=== PATIENT | female | born 1990 | race Caucasian/White ===

== ENCOUNTER → 2016-03-19 | Outpatient (CLI) | payer OTHER ==
[~2016-03-19] MED LIST: FIOR1CAP PO; IBUP60TA PO; PERC5TAB6 PO; PREN1TAB11 PO; SLOW160T PO
== END ==
LOC: M LRY 15:49
PROVIDERS: ATTEND Advanced Practice Midwife
DX: N91.2 Amenorrhea, unspecified (principal)

== ENCOUNTER → 2017-02-11 | Outpatient (CLI) | payer OTHER ==
[2017-02-11 11:40] LABS: BASO % 0.3 % (0.0-1.0); EOS % 0.3 % (0.0-3.0); IMMATURE GRANULOCYTE % 0.3 % (0-0); LYMPH # 1.5 10^3/uL (1.5-6.5); LYMPH % 16.5 % (24.0-44.0); MEAN CORPUSCULAR HEMOGLOBIN 28.3 pg (27.0-33.0); MEAN CORPUSCULAR HGB CONC 33.5 g/dl (32.0-36.5); MEAN CORPUSCULAR VOLUME 84.5 fl (80.0-96.0); MONO # 0.4 10^3/uL (0.0-0.8); MONO % 4.4 % (0.0-5.0); NEUTROPHILS # 6.9 10^3/uL (1.8-7.7); NEUTROPHILS % 78.2 % (36.0-66.0); PLATELET COUNT, AUTOMATED 321 10^3/uL (150-450); RED CELL DISTRIBUTION WIDTH 13.6 % (11.5-14.5); WHITE BLOOD COUNT 8.8 10^3/uL (4.0-10.0)
[2017-02-11 12:19] LABS: HBsAg Prenatal NEGATIVE (NEGATIVE)
[2017-02-11 12:26] LABS: ALT/SGPT 18 U/L (12-78); AST/SGOT 15 U/L (7-37); BILIRUBIN,TOTAL 0.3 MG/DL (0.2-1.0); GLOMERULAR FILTRATION RATE > 60.0 (>60)
== END ==
LOC: M LRY 09:59
DX: Z34.81 Encounter for supervision of other normal pregnancy, first trimester (principal); Z3A.01 Less than 8 weeks gestation of pregnancy
CPT/HCPCS: 84460

== ENCOUNTER → 2017-03-16 | Outpatient (REF) | payer OTHER | LOC: M SFHCLERA 16:32 | DX: J02.9 Acute pharyngitis, unspecified (principal) ==

== ENCOUNTER → 2017-04-10 | Outpatient (CLI) | payer OTHER | LOC: M RAD 09:57 | DX: Z36.89 Encounter for other specified antenatal screening (principal); Z3A.00 Weeks of gestation of pregnancy not specified | CPT/HCPCS: 76811 ==

== ENCOUNTER → 2017-05-07 | Outpatient (CLI) | payer OTHER | LOC: M RAD 15:44 | DX: Z36.9 Encounter for antenatal screening, unspecified (principal); Z3A.22 22 weeks gestation of pregnancy | CPT/HCPCS: 76816 ==

== ENCOUNTER 2017-05-08 15:55 | Outpatient (CLI) | payer OTHER ==
[2017-05-08 17:08] LABS: AMORPHOUS SEDIMENT SMALL (NEGATIVE); APPEARANCE, URINE CLOUDY (CLEAR); BACTERIA, URINE AUTO NEGATIVE (NEGATIVE); BILIRUBIN, URINE AUTO NEGATIVE (NEGATIVE); BLOOD, URINE BLOOD 3+ (NEGATIVE); COLOR, URINE YELLOW (YELLOW); GLUCOSE, URINE (UA) AUTO NEGATIVE (NEGATIVE); KETONE, URINE AUTO NEGATIVE (NEGATIVE); LEUKOCYTE ESTERASE, URINE AUTO NEGATIVE (NEGATIVE); NITRITE, URINE AUTO NEGATIVE (NEGATIVE); PROTEIN, URINE AUTO NEGATIVE (NEGATIVE); RBC, URINE AUTO TNTC /HPF (0-3); SPECIFIC GRAVITY URINE AUTO 1.014 (1.002-1.035); SQUAMOUS EPITHELIAL CELL UR AU 2 /HPF (0-6); UROBILINOGEN, URINE AUTO 0.2 mg/dL (0.0-2.0); WBC, URINE AUTO 2 /HPF (0-3)
== END 2017-05-08 17:38 | disposition home or self-care (01) ==
LOC: M LDO 15:55
DX: O99.89 Other specified diseases and conditions complicating pregnancy, childbirth and the puerperium (principal); Z3A.22 22 weeks gestation of pregnancy; R82.90 Unspecified abnormal findings in urine; O62.0 Primary inadequate contractions; Z88.2 Allergy status to sulfonamides
CPT/HCPCS: 59025

== ENCOUNTER → 2017-06-03 | Outpatient (REF) | payer OTHER ==
[2017-06-03 14:17] LABS: CREATININE,RANDOM URINE 94.3 MG/DL
== END ==
LOC: M LAB REF 13:18
DX: Z34.82 Encounter for supervision of other normal pregnancy, second trimester (principal)

== ENCOUNTER → 2017-06-03 | Outpatient (CLI) | payer OTHER ==
[2017-06-03 14:09] LABS: ALT/SGPT 14 U/L (12-78); AST/SGOT 15 U/L (7-37); BILIRUBIN,TOTAL 0.1 MG/DL (0.2-1.0); CREATININE FOR GFR 0.54 MG/DL (0.55-1.30); GLOMERULAR FILTRATION RATE > 60.0 (>60); LDH LACTATE DEHYDROGENASE 124 U/L (84-246); URIC ACID 3.3 MG/DL (2.6-6.0)
== END ==
LOC: M SMT 08:24
DX: Z34.82 Encounter for supervision of other normal pregnancy, second trimester (principal)

== ENCOUNTER → 2017-06-08 | Outpatient (CLI) | payer OTHER ==
[2017-06-08 16:27] LABS: HEMATOCRIT 33.3 % (36.0-47.0); MEAN CORPUSCULAR HEMOGLOBIN 28.9 pg (27.0-33.0); MEAN CORPUSCULAR VOLUME 87.6 fl (80.0-96.0); PLATELET COUNT, AUTOMATED 251 10^3/uL (150-450); WHITE BLOOD COUNT 10.2 10^3/uL (4.0-10.0)
[2017-06-09 11:41] LABS: GLUCOSE CHALLENGE TEST 1 HOUR 156 MG/DL (LESS THAN 140)
== END ==
LOC: M LRY 09:52
DX: Z36.89 Encounter for other specified antenatal screening (principal); Z3A.00 Weeks of gestation of pregnancy not specified
CPT/HCPCS: 82950

== ENCOUNTER → 2017-06-10 | Outpatient (CLI) | payer OTHER ==
[2017-06-10 08:50] LABS: GLUCOSE, FASTING 64 MG/DL (LESS THAN 95)
[2017-06-10 09:52] LABS: 1 HR GLUCOSE 116 MG/DL (LESS THAN 180)
[2017-06-10 11:01] LABS: 2 HR GLUCOSE 115 MG/DL (LESS THAN 155)
[2017-06-10 11:33] LABS: 3 HR GLUCOSE 49 MG/DL (LESS THAN 140)
== END ==
LOC: M LAB 07:46
DX: Z34.82 Encounter for supervision of other normal pregnancy, second trimester (principal)

== ENCOUNTER 2017-06-22 11:38 | Outpatient (CLI) | payer OTHER ==
[2017-06-22 13:00] LABS: HEMOGLOBIN 11.1 g/dl (12.0-15.5); MEAN CORPUSCULAR HGB CONC 33.6 g/dl (32.0-36.5); MEAN CORPUSCULAR VOLUME 86.2 fl (80.0-96.0); PLATELET COUNT, AUTOMATED 246 10^3/uL (150-450); RED BLOOD COUNT 3.83 10^6/uL (4.00-5.40); RED CELL DISTRIBUTION WIDTH 13.5 % (11.5-14.5); WHITE BLOOD COUNT 11.5 10^3/uL (4.0-10.0)
[2017-06-22 13:36] LABS: TROPONIN I < 0.02 NG/ML (< 0.10)
[2017-06-22 14:06] LABS: ALBUMIN 2.7 GM/DL (3.2-5.2); ALBUMIN/GLOBULIN RATIO 0.71 (1.00-1.93); ALKALINE PHOSPHATASE 121 U/L (45-117); ALT/SGPT 17 U/L (12-78); ANION GAP 8 MEQ/L (8-16); AST/SGOT 16 U/L (7-37); BILIRUBIN,TOTAL 0.2 MG/DL (0.2-1.0); BLOOD UREA NITROGEN 6 MG/DL (7-18); CALCIUM LEVEL 8.6 MG/DL (8.5-10.1); CARBON DIOXIDE LEVEL 22 MEQ/L (21-32); CHLORIDE LEVEL 108 MEQ/L (98-107); GLOMERULAR FILTRATION RATE > 60.0 (>60); GLUCOSE, FASTING 76 MG/DL (70-100); LDH LACTATE DEHYDROGENASE 149 U/L (84-246); POTASSIUM SERUM 4.1 MEQ/L (3.5-5.1); SODIUM LEVEL 138 MEQ/L (136-145); TOTAL PROTEIN 6.5 GM/DL (6.4-8.2); URIC ACID 3.2 MG/DL (2.6-6.0)
[2017-06-22 15:02] LABS: CREATININE,RANDOM URINE 33.6 MG/DL
[2017-06-22] MEDS: PANTOPRAZOLE 40MG TAB (PROTONIX) PO (16:58)
== END 2017-06-22 17:30 | disposition home or self-care (01) ==
LOC: M LDO 11:38
DX: O99.89 Other specified diseases and conditions complicating pregnancy, childbirth and the puerperium (principal); Z3A.28 28 weeks gestation of pregnancy; R03.0 Elevated blood-pressure reading, without diagnosis of hypertension; R07.89 Other chest pain; O13.3 Gestational [pregnancy-induced] hypertension without significant proteinuria, third trimester; Z88.2 Allergy status to sulfonamides
CPT/HCPCS: 59025

== ENCOUNTER → 2017-07-10 | Outpatient (CLI) | payer OTHER | LOC: M RAD 17:58 | DX: O13.3 Gestational [pregnancy-induced] hypertension without significant proteinuria, third trimester (principal); Z34.83 Encounter for supervision of other normal pregnancy, third trimester ==

== ENCOUNTER → 2017-07-27 | Outpatient (CLI) | payer OTHER ==
[2017-07-27 17:23] LABS: ALBUMIN 2.7 GM/DL (3.2-5.2); ALBUMIN/GLOBULIN RATIO 0.69 (1.00-1.93); ALKALINE PHOSPHATASE 179 U/L (45-117); ALT/SGPT 22 U/L (12-78); AST/SGOT 20 U/L (7-37); BILIRUBIN,DIRECT < 0.1 MG/DL (0.0-0.2); BILIRUBIN,TOTAL 0.2 MG/DL (0.2-1.0); TOTAL PROTEIN 6.6 GM/DL (6.4-8.2)
[2017-07-30 14:16] LABS: BILE ACIDS FRACTIONATED 4.9 umol/L (4.7-24.5)
== END ==
LOC: M LRY 11:28
DX: L29.9 Pruritus, unspecified (principal)
CPT/HCPCS: 80076

== ENCOUNTER → 2017-07-30 | Outpatient (CLI) | payer OTHER | LOC: M RAD 17:07 | DX: O13.3 Gestational [pregnancy-induced] hypertension without significant proteinuria, third trimester (principal); Z3A.34 34 weeks gestation of pregnancy ==

== ENCOUNTER → 2017-08-04 | Outpatient (CLI) | payer OTHER | LOC: M RAD 09:32 | DX: O13.3 Gestational [pregnancy-induced] hypertension without significant proteinuria, third trimester (principal) | CPT/HCPCS: 76815 ==

== ENCOUNTER 2017-08-06 14:24 | Outpatient (CLI) | payer OTHER ==
[2017-08-06] MEDS: ONDANSETRON 4MG/2ML VIAL (J2405) IV (15:11)
[2017-08-06] MEDS: D5W 1000 ML IV (15:11)
[2017-08-06] MEDS: D5W 1,000 ML IV (15:49)
[2017-08-06] MEDS: FIORICET TAB PO (16:15)
[2017-08-06] MEDS: TERBUTALINE SULFATE 1 MG/ML VIAL (J3105) SC (18:29)
== END 2017-08-06 20:03 | disposition home or self-care (01) ==
LOC: M LDO 14:24
DX: O99.89 Other specified diseases and conditions complicating pregnancy, childbirth and the puerperium (principal); R51 Headache; O99.283 Endocrine, nutritional and metabolic diseases complicating pregnancy, third trimester; E86.0 Dehydration; O13.3 Gestational [pregnancy-induced] hypertension without significant proteinuria, third trimester; Z3A.35 35 weeks gestation of pregnancy
CPT/HCPCS: J3105

== ENCOUNTER 2017-08-10 15:08 | Outpatient (CLI) | payer OTHER ==
[2017-08-10] MEDS: ACETAMINOPHEN 500 MG TAB PO (16:23)
[2017-08-10 16:35] LABS: HEMATOCRIT 32.7 % (36.0-47.0); HEMOGLOBIN 10.9 g/dl (12.0-15.5); MEAN CORPUSCULAR HEMOGLOBIN 27.7 pg (27.0-33.0); MEAN CORPUSCULAR HGB CONC 33.3 g/dl (32.0-36.5); MEAN CORPUSCULAR VOLUME 83.2 fl (80.0-96.0); PLATELET COUNT, AUTOMATED 202 10^3/uL (150-450); RED BLOOD COUNT 3.93 10^6/uL (4.00-5.40); RED CELL DISTRIBUTION WIDTH 13.5 % (11.5-14.5); WHITE BLOOD COUNT 10.5 10^3/uL (4.0-10.0)
[2017-08-10 16:47] LABS: CREATININE,RANDOM URINE 40.9 MG/DL
[2017-08-10 16:47] LABS: TOTAL PROTEIN,RANDOM URINE 5.9 MG/DL (0.0-12.0)
[2017-08-10 17:02] LABS: ALT/SGPT 17 U/L (12-78); AST/SGOT 17 U/L (7-37); BILIRUBIN,TOTAL 0.2 MG/DL (0.2-1.0); CREATININE FOR GFR 0.56 MG/DL (0.55-1.30); GLOMERULAR FILTRATION RATE > 60.0 (>60); LDH LACTATE DEHYDROGENASE 151 U/L (84-246); URIC ACID 4.4 MG/DL (2.6-6.0)
== END 2017-08-10 17:20 | disposition home or self-care (01) ==
LOC: M LDO 15:08
DX: O26.893 Other specified pregnancy related conditions, third trimester (principal); Z3A.35 35 weeks gestation of pregnancy
CPT/HCPCS: 59025

== ENCOUNTER → 2017-09-03 | Outpatient (REF) | payer OTHER | LOC: M LAB REF 17:08 | DX: R10.2 Pelvic and perineal pain (principal) ==

== ENCOUNTER 2018-05-13 16:23 | Emergency (ER) | payer OTHER ==
[~2018-05-13] VITALS: Ht 160 cm; Wt 68.2 kg
[~2018-05-13 16:23] MED LIST changes: +IBUP1TAB7 PO; +IBUP600T42 PO; -IBUP60TA PO; +MAPA500T2 PO; +PERC5TAB12 PO; -PERC5TAB6 PO; +PERCOCET PO; +SERT-141 PO; +ZANTTAB PO
[2018-05-13 16:35] VITALS: BP 109/67
[2018-05-13] MEDS ORDERED: METOCLOPRAMIDE INJ 10MG/2ML VIAL (J2765) IV ONE (17:30)
--- NOTE | 2018-05-13 17:58 | REPVR ---
EXAM: CT Head Without Contrast EXAM DATE/TIME: 05/13/2018 5:34 PM CLINICAL HISTORY: 27 years old, female; Pain; Headache; Headache not specified; Additional info: MATHEW TECHNIQUE: Imaging protocol: Axial computed tomography images of the head/brain without contrast. Radiation optimization: All CT scans at this facility use at least one of these dose optimization techniques: automated exposure control; mA and/or kV adjustment per patient size (includes targeted exams where dose is matched to clinical indication); or iterative reconstruction. COMPARISON: No relevant prior studies available. FINDINGS: Brain: There is no evidence of intracranial bleed. Ventricles: Normal ventricles. Bones/joints: There is no evidence of fracture. Sinuses: There is mild mucosal thickening within the ethmoid sinuses. Mastoid air cells: Clear mastoid air cells. Soft tissues: Unremarkable. IMPRESSION: There is mild mucosal thickening in the ethmoid sinuses otherwise normal appearing CT scan of the brain. Electronically signed by: Ryan Hinton On 05/13/2018 17:58:10 PM
[2018-05-13] MEDS ORDERED: ACETAMINOPHEN 500 MG TAB PO ONE (18:30)
[2018-05-13 18:38] LABS: BLOOD UREA NITROGEN 12 MG/DL (7-18); CALCIUM LEVEL 9.1 MG/DL (8.5-10.1); CARBON DIOXIDE LEVEL 26 MEQ/L (21-32); CHLORIDE LEVEL 106 MEQ/L (98-107); CREATININE FOR GFR 0.63 MG/DL (0.55-1.30); GLOMERULAR FILTRATION RATE > 60.0 (>60); GLUCOSE, FASTING 90 MG/DL (70-100); POTASSIUM SERUM 4.2 MEQ/L (3.5-5.1); SODIUM LEVEL 139 MEQ/L (136-145)
[2018-05-13 18:50] LABS: BASO % 0.3 % (0.0-1.0); EOS % 0.2 % (0.0-3.0); HEMATOCRIT 39.2 % (36.0-47.0); HEMOGLOBIN 12.6 g/dl (12.0-15.5); LYMPH # 1.3 10^3/uL (1.5-6.5); LYMPH % 11.1 % (24.0-44.0); MEAN CORPUSCULAR HEMOGLOBIN 26.5 pg (27.0-33.0); MEAN CORPUSCULAR HGB CONC 32.1 g/dl (32.0-36.5); MEAN CORPUSCULAR VOLUME 82.5 fl (80.0-96.0); MONO # 0.7 10^3/uL (0.0-0.8); MONO % 5.7 % (0.0-5.0); NEUTROPHILS # 9.7 10^3/uL (1.8-7.7); NEUTROPHILS % 82.1 % (36.0-66.0); PLATELET COUNT, AUTOMATED 299 10^3/uL (150-450); RED BLOOD COUNT 4.75 10^6/uL (4.00-5.40); WHITE BLOOD COUNT 11.8 10^3/uL (4.0-10.0)
== END 2018-05-13 20:24 | disposition home or self-care (01) ==
LOC: M ED 16:23
DX: R51 Headache (principal); Z87.440 Personal history of urinary (tract) infections; Z87.442 Personal history of urinary calculi; Z79.899 Other long term (current) drug therapy; Z88.2 Allergy status to sulfonamides

== ENCOUNTER → 2020-12-17 | Outpatient (CLI) | payer OTHER ==
[~2020-12-17] MED LIST changes: +ZANT150T40 PO; -ZANTTAB PO
--- NOTE | 2020-12-17 15:17 | REP ---
INDICATION: B/L BREAST PAIN. COMPARISON: None TECHNIQUE: Real-time sonographic evaluation of bilateral breasts performed. FINDINGS: Reportedly there is pain in the right retroareolar and 12 o'clock region. Sonographic evaluation in that region demonstrates no discrete cystic or solid mass. Reportedly there is pain in the left breast at 2 o'clock. No cystic or solid nodule is seen at that location sonographically. IMPRESSION: BIRADS/ACR category 1, negative bilateral breast ultrasound at the site of pain, specifically in the right retroareolar and 12 o'clock region and left 2 o'clock region. RECOMMENDATION: Clinical correlation and follow-up. <Electronically signed by Wilfred Burrell > 12/17/20 1973
== END ==
LOC: M WHC 13:37
PROVIDERS: ATTEND Advanced Practice Midwife
DX: N64.4 Mastodynia (principal)

== ENCOUNTER → 2020-12-20 | Outpatient (REF) | payer OTHER | LOC: M SFHCWAGY 10:09 | PROVIDERS: ATTEND Advanced Practice Midwife | DX: Z12.4 Encounter for screening for malignant neoplasm of cervix (principal) | CPT/HCPCS: 87624; G0123 ==

== ENCOUNTER → 2021-03-29 | Outpatient (CLI) | payer OTHER | LOC: M PLALAB 14:37 | PROVIDERS: ATTEND Nurse Practitioner Women's Health | DX: Z13.79 Encounter for other screening for genetic and chromosomal anomalies (principal) ==

== ENCOUNTER → 2021-04-18 | Outpatient (CLI) | payer OTHER | LOC: M WHC 09:28 | PROVIDERS: ATTEND Nurse Practitioner Women's Health | DX: N64.4 Mastodynia (principal); Z80.3 Family history of malignant neoplasm of breast; Z91.89 Other specified personal risk factors, not elsewhere classified; Z80.42 Family history of malignant neoplasm of prostate | CPT/HCPCS: 77066; G0279 ==

== ENCOUNTER → 2022-05-15 | Outpatient (CLI) | payer OTHER ==
[2022-05-15 13:47] LABS: HEMATOCRIT 40.6 % (36.0-47.0); MEAN CORPUSCULAR HEMOGLOBIN 26.5 pg (27.0-33.0); MEAN CORPUSCULAR VOLUME 82.9 fl (80.0-96.0); PLATELET COUNT, AUTOMATED 323 10^3/uL (150-450)
[2022-05-15 14:03] LABS: ALBUMIN 3.8 G/DL (3.2-5.2); ALKALINE PHOSPHATASE 102 U/L (46-116); ALT/SGPT 23 U/L (7.0-40); AST/SGOT 16 U/L (<34); BILIRUBIN,TOTAL 0.3 MG/DL (0.3-1.2); BLOOD UREA NITROGEN 13 MG/DL (9-23); CALCIUM LEVEL 9.4 MG/DL (8.5-10.1); CARBON DIOXIDE LEVEL 25 MMOL/L (20-31); CHLORIDE LEVEL 106 MMOL/L (98-107); CREATININE FOR GFR 0.63 MG/DL (0.55-1.30); FREE T4 1.04 NG/DL (0.89-1.76); GLOMERULAR FILTRATION RATE > 60.0 (>60); GLUCOSE, FASTING 103 MG/DL (60-100); POTASSIUM SERUM 4.3 MMOL/L (3.5-5.1); SODIUM LEVEL 138 MMOL/L (136-145); THYROID STIMULATING HORMONE 0.929 uIU/ML (0.55-4.78); TOTAL PROTEIN 7.1 G/DL (5.7-8.2)
== END ==
LOC: M PLALAB 09:26
PROVIDERS: ATTEND Advanced Practice Midwife
DX: R10.2 Pelvic and perineal pain (principal); Z12.4 Encounter for screening for malignant neoplasm of cervix; N92.1 Excessive and frequent menstruation with irregular cycle
CPT/HCPCS: 36415; 80053; 84439; 84443; 85027; 87491; 87591; 87624; 87661; 87798; G0123

== ENCOUNTER → 2022-06-10 | Outpatient (CLI) | payer OTHER | LOC: M WHC 11:35 | PROVIDERS: ATTEND Advanced Practice Midwife | DX: N92.1 Excessive and frequent menstruation with irregular cycle (principal); R10.2 Pelvic and perineal pain; R93.89 Abnormal findings on diagnostic imaging of other specified body structures ==

== ENCOUNTER 2022-10-24 11:24 | Day surgery (SDC) | payer OTHER ==
[~2022-10-24] VITALS: Ht 162.6 cm; Wt 76.6 kg
[~2022-10-24 11:24] MED LIST changes: +AMIT75TA PO; +HYDR-3363 PO; +KETOROLAC 60MG 2ML VIAL As Ordered ONE; +LIDOCAINE 2% 100MG/5ML SDV (FOR ANES.) As Ordered ONE; +ONDANSETRON 4MG 2ML VIAL As Ordered ONE; +ROCURONIUM BROMIDE 50MG/5ML VIAL As Ordered ONE; +SUGAMMADEX SODIUM 500 MG/5 ML VIAL (BRIDION) As Ordered ONE; +ceFAZolin SOD 2 GM in IV 1 EA IV ONE; +propofoL 200 MG/20 ML VIAL As Ordered ONE
[2022-10-24] MEDS ORDERED: fentaNYL 250 MCG/5 ML INJECTION As Ordered ONE (11:38)
[2022-10-24] MEDS ORDERED: MIDAZOLAM INJ 2MG/2ML VIAL As Ordered ONE (11:39)
[2022-10-24] MEDS ORDERED: LR 1,000 ML IV SCH ×2 (11:45→15:00)
[2022-10-24 11:57] LABS: HEMATOCRIT 40.5 % (36.0-47.0); MEAN CORPUSCULAR HEMOGLOBIN 26.8 pg (27.0-33.0); MEAN CORPUSCULAR HGB CONC 32.1 g/dl (32.0-36.5); MEAN CORPUSCULAR VOLUME 83.5 fl (80.0-96.0); PLATELET COUNT, AUTOMATED 358 10^3/uL (150-450); RED BLOOD COUNT 4.85 10^6/uL (4.00-5.40)
[2022-10-24] MEDS ORDERED: ACETAMINOPHEN 1000MG 100ML IV BAG As Ordered ONE (13:11)
[2022-10-24] MEDS ORDERED: METHYLENE BLUE 0.5% (5MG/ML) 10 ML AMP (PROVAYBLUE) As Ordered ONE (13:40)
[2022-10-24] MEDS ORDERED: HYDROmorphone HCL 2MG/ML 1ML VIAL As Ordered ONE (14:06)
[2022-10-24] MEDS ORDERED: fentaNYL 100 MCG/2 ML INJECTION IV PRN (15:00)
[2022-10-24] MEDS ORDERED: ONDANSETRON 4MG 2ML VIAL IV PRN (15:00)
[2022-10-24] MEDS ORDERED: HYDROMORPHONE HCL 0.5 MG/ 0.5 ML SYRINGE IV PRN (15:00)
[2022-10-24] MEDS ORDERED: oxyCODONE 5MG TAB PO PRN (15:00)
[2022-10-24] MEDS ORDERED: OXYC1TAB23 PO (15:35)
[2022-10-24] MEDS ORDERED: IBUP1TAB7 PO (15:37)
[2022-10-24] MEDS ORDERED: METOCLOPRAMIDE INJ 10MG/2ML VIAL IV ONE (16:55)
[2022-10-24 17:37] VITALS: BP 139/78; TEMP 97.9; O2SAT 99
== END 2022-10-24 18:01 | disposition home or self-care (01) ==
LOC: M SDC 11:24
PROVIDERS: ATTEND Obstetrics & Gynecology
DX: N93.9 Abnormal uterine and vaginal bleeding, unspecified (principal); F41.9 Anxiety disorder, unspecified; F32.A Depression, unspecified; Z79.899 Other long term (current) drug therapy; Z88.2 Allergy status to sulfonamides
CPT/HCPCS: 36415; 58571; 81025; 85027; 86850; 86900; 86901; 88307; J0131; J0665; J0690; J1100; J1170; J1885; J2250; J2405; J2765; J3010; Q9968; S2900